=== PATIENT | male | born 1955 | race Caucasian/White ===

== ENCOUNTER 2018-02-04 12:36 | Observation (INO) | payer OTHER ==
--- NOTE | 2018-02-04 12:50 | CPEKG ---
Heart Rate: 97 RR Interval: 619 P-R Interval: 200 QRSD Interval: 102 QT Interval: 448 QTC Interval: 569 P [place]: 4 QRS [place]: -35 T Wave [place]: -34 EKG Severity - ABNORMAL ECG - EKG Impression: SINUS RHYTHM EKG Impression: VENTRICULAR TRIGEMINY EKG Impression: LEFT AXIS DEVIATION EKG Impression: LEFT VENTRICULAR HYPERTROPHY Electronically Signed By: Kodak Francis 04-Feb-2018 18:39:46
[2018-02-04 12:54] LABS: PLATELET COUNT 236 10^3/uL (150-400)
--- NOTE | 2018-02-04 13:03 | EDPHY ---
H & P Stated Complaint: Heaviness in chest this morning; recent bronchitis Time Seen by Provider: 02/04/18 13:00 HPI/ROS: CHIEF COMPLAINT: Vague chest discomfort HISTORY OF PRESENT ILLNESS: The patient presents to the ED after he woke today with some vague chest discomfort. He describes a generalized pain that is quite mild in nature. There is no radiation. He denies any history of exertional chest pain or shortness of breath. The patient does have a history of coronary artery disease with a stent placed several years ago. At that point time he had been having neck pain which the patient denies today. The patient reports he has been compliant with his regular medications for hypertension and hyperlipidemia. The patient has had months of dyspnea. The patient reportedly was started on albuterol earlier in the week for management of the symptoms. The patient denies any fever or productive cough. He denies any additional acute complaints. REVIEW OF SYSTEMS: A comprehensive 10 point review of systems is otherwise negative aside from elements mentioned in the history of present illness. Source: Patient Exam Limitations: No limitations - Personal History Current Tetanus Diphtheria and Acellular Pertussis (TDAP): Yes - Medical/Surgical History Hx Cardiac Disease: Yes Other PMH: HTN. cholesterol. card stent - Social History Smoking Status: Never smoked - Physical Exam Exam: General Appearance: Alert, no distress Eyes: Pupils equal and round no pallor or injection ENT, Mouth: Mucous membranes moist Respiratory: There are no retractions, lungs are clear to auscultation Cardiovascular: Regular rate and rhythm Gastrointestinal: Abdomen is soft and nontender, no masses, bowel sounds normal Neurological: 5/5 strength all 4 extremities, cranial nerves 2-12 intact Skin: Warm and dry, no rashes Musculoskeletal: Neck is supple nontender Extremities: symmetrical, full range of motion Constitutional: Initial Vital Signs Temperature (C) 36.5 C 02/04/18 12:37 Heart Rate 63 02/04/18 12:37 Respiratory Rate 16 02/04/18 12:37 Blood Pressure 162/96 H 02/04/18 12:37 O2 Sat (%) 93 02/04/18 12:37 O2 Delivery Mode Room Air Allergies/Adverse Reactions: No Known Allergies Allergy (Verified 02/04/18 12:37) Home Medications: Medication Instructions Recorded Albuterol Hfa Anes Only [Proair 2 puffs IH QID PRN 02/04/18 Hfa Icu (*)] Aspirin [Aspirin 325 mg (*)] 325 mg PO DAILY 02/04/18 Carvedilol [Coreg (*)] 12.5 mg PO BID 02/04/18 Enalapril Maleate [Vasotec 20 MG 20 mg PO DAILY 02/04/18 (*)] Herbals/Supplements -Info Only 1 ea PO DAILY 02/04/18 Ibuprofen [Motrin (*)] 200 - 400 mg PO Q6H PRN 02/04/18 Montelukast Sodium [Singulair 10 10 mg PO DAILY 02/04/18 mg (*)] Rosuvastatin Calcium [Crestor] 10 mg PO DAILY 02/04/18 Medical Decision Making - Diagnostics EKG Interpretation: EKG: Complete interpretation has been separately recorded in the [employer] archive. Summary impression: Sinus rhythm, rate 97, nonspecific ST T wave changes noted, multiple PVCs noted Imaging Results: Imaging Impressions Chest X-Ray 02/04/18 12:46 Impression: No active cardiopulmonary disease seen. ED Course/Re-evaluation: The patient presents to the ED with a 1 day history of atypical chest pain. The patient does have a history of known coronary artery disease. The patient' s initial troponin is normal despite 7 hr of symptoms. The patient was noted to have only mild ST segment depression in a single precordial lead. Consultation was made with Cardiology. The patient did undergo a treadmill stress test which was reported to me as being abnormal. The patient was return to the emergency department. The patient will be admitted to Cardiology for further risk stratification. Differential Diagnosis: Differential diagnosis considered includes acute myocardial infarction, acute coronary syndrome, pericarditis, esophageal spasm - Data Points Laboratory Results: Laboratory Results 02/04/18 12:47 02/04/18 12:47 02/04/18 02/04/18 12:47 12:47 WBC 5.52 10^3/uL 10^3/uL (3.80-9.50) RBC 5.62 10^6/uL 10^6/uL (4.40-6.38) Hgb 18.4 g/dL H g/dL (13.7-17.5) Hct 51.6 % H % (40.0-51.0) MCV 91.8 fL fL (81.5-99.8) MCH 32.7 pg pg (27.9-34.1) MCHC 35.7 g/dL g/dL (32.4-36.7) RDW 12.7 % % (11.5-15.2) Plt Count 236 10^3/uL 10^3/uL (150-400) MPV 9.6 fL fL (8.7-11.7) Neut % (Auto) 41.9 % % (39.3-74.2) Lymph % (Auto) 36.2 % % (15.0-45.0) [place] % (Auto) 9.8 % % (4.5-13.0) Eos % (Auto) 10.1 % H % (0.6-7.6) Baso % (Auto) 1.8 % H % (0.3-1.7) Nucleat RBC Rel Count 0.0 % % (0.0-0.2) Absolute Neuts (auto) 2.31 10^3/uL 10^3/uL (1.70-6.50) Absolute Lymphs (auto) 2.00 10^3/uL 10^3/uL (1.00-3.00) Absolute Monos (auto) 0.54 10^3/uL 10^3/uL (0.30-0.80) Absolute Eos (auto) 0.56 10^3/uL H 10^3/uL (0.03-0.40) Absolute Basos (auto) 0.10 10^3/uL 10^3/uL (0.02-0.10) Absolute Nucleated RBC 0.00 10^3/uL 10^3/uL (0-0.01) Immature Gran % 0.2 % % (0.0-1.1) Immature Gran # 0.01 10^3/uL 10^3/uL (0.00-0.10) Sodium 146 mEq/L H mEq/L (135-145) Potassium 4.9 mEq/L mEq/L (3.5-5.2) Chloride 103 mEq/L mEq/L (97-110) Carbon Dioxide 29 mEq/l mEq/l (22-31) Anion Gap 14 mEq/L mEq/L (8-16) BUN 15 mg/dL mg/dL (7-23) Creatinine 1.0 mg/dL mg/dL (0.7-1.3) Estimated GFR > 60 Glucose 72 mg/dL mg/dL (70-100) Calcium 9.7 mg/dL mg/dL (8.5-10.4) Troponin I < 0.012 ng/mL ng/mL (0.000-0.034) Departure - Departure Disposition: [facility] Inpatient Acute Clinical Impression: Chest pain Qualifiers: Chest pain type: other chest pain Qualified Code(s): R07.89 - Other chest pain ; R07.8 - Other chest pain Condition: Good
--- NOTE | 2018-02-04 15:23 | PDCARST ---
CAR Stress Test Results Type of Stress Test: TM stress test Indication: cp Description of Procedure: After informed consent was obtained, pt was exercised according to Javi Protocol. Monitoring was performed with standard stress mercury cracking tester electrode placement. Vital signs were monitored according to protocol throughout the procedure. STRESS EKG AND HEMODYNAMIC DATA. Exercise time: 6: 45 min. This is equivalent to: 7.7 METS. Resting heart rate: 63 bpm. Resting blood pressure: 121/88 mmHg. Resting O2 saturation: 98 %. Peak heart rate: 135 bpm. This is 86% of age predicted maximum heart rate response. Peak blood pressure: 140/80 mmHg. Exercise O2: 96 %. Arrhythmias: Baseline: PVC/ PVC bigeminy; Stress: PVCs/PVC triplets; Recovery: PVCs. Reason for termination : The test was stopped due to ECG changes/PVCs. Symptoms: The patient experienced no typical symptoms of angina during stress or recovery. STRESS TEST ANALYSIS. Baseline ECG: SR with mild ST abnormalities/ PVCs. Stress EC mm STD. exercise induced ischemic ECG changes: Yes. Rhythm: Frequent ventricular arrhythmias noted during exercise and recovery. Blood pressure: Normal blood pressure response to exercise. Exercise tolerance: The patient has normal exercise tolerance adjusted for age and gender. Symptoms: No exercise induced symptoms. IMPRESSIONS: Stress ECG concerning for ischemia. The [place] Treadmill Score is -4 (intermediate risk). Impression: Abnormal TM stress test. Conclusion: Admit to obs for further workup.
[2018-02-04] MEDS ORDERED: IBUPROFEN 200 MG TAB PO PRN (15:32)
[2018-02-04] MEDS ORDERED: ALBUTEROL HFA ANES ONLY 200 PUFFS/8.5 GM MDI IH PRN (15:32)
[2018-02-04] MEDS ORDERED: ACETAMINOPHEN 325 MG TAB PO PRN (16:06)
[2018-02-04] MEDS ORDERED: NITROGLYCERIN 0.4 MG BTL SL PRN (16:06)
[2018-02-04] MEDS ORDERED: TEMAZEPAM 15 MG CAP PO PRN (16:06)
--- NOTE | 2018-02-04 16:52 | GHP ---
[f rep st] HISTORY AND PHYSICAL DATE OF ADMISSION: 02/04/2018 PRIMARY DENTIST: Dr. Eric Orozco MD HISTORY OF PRESENT ILLNESS: Patient is a 62-year-old male with known coronary artery disease, status post PTCA and stenting to right coronary artery in 2014, hypertension, parathyroid tumor, status post resection approximately 1 year ago , who presented to the emergency department and is now admitted for evaluation of chest pain. He reports awakening at 7 a.m. having noted night sweats overnight. This is not unusual for him but they have decreased in frequency over the past few years. After wakening, he noted that he had a tightness in his chest. He was also noting ongoing fatigue, so he continued to lie in bed. He was able to get up later but then went back to bed noting the ongoing tightness and fatigue. As he was lying in bed, he noted left arm pain. He had 2 twinges of this that resolved spontaneously. After he got out of bed at 11 AM , he started to note tightness in his neck and jaw. It was at that point he presented to the emergency department for further evaluation. Upon arrival to the emergency department. He was noted to have some mild EKG changes. Symptoms mostly resolved on their, own and he was taken to the stress test laboratory for stress testing. With stress testing, he was noted to have frequent ventricular ectopy, PVC couplets and triplets, and at least a 1.[address] depression. With these findings, patient is now being admitted for further observation, and likely cardiac catheterization. Patient describes several months of feeling poorly. He will note dyspnea on exertion and fatigue. He was treated for sinus infection and then started to note some dyspnea for which he was prescribed an inhaler. Despite this he did not feel any significant improvement. He denies any other episodes of chest discomfort other than the above described. He denies any fever, chills, cough, or PND or orthopnea. REVIEW OF SYSTEMS: As per HPI. A complete 10-point review of systems was obtained. PAST MEDICAL HISTORY: 1. Coronary artery disease. 2. Dyslipidemia. 3. Hypertension. 4. Parathyroid tumor, status post parathyroidectomy. FAMILY HISTORY: His mother is alive and had has had CEA surgery. Father had an AR at age 53 and at age 66. SOCIAL HISTORY: Patient is retired. His is present at the time of the interview. He is a nonsmoker and alcohol is listed as only occasional. OUTPATIENT MEDICATIONS: Please see med reconciliation. It is listed that he takes carvedilol, ibuprofen, albuterol, Singulair, enalapril, aspirin and rosuvastatin. ALLERGIES: No known drug allergies. PHYSICAL EXAMINATION: VITAL SIGNS: BP of 142/103, heart rate 72, respirations 22, O2 saturation 95% on room air. GENERAL: He is a very pleasant male in no apparent distress. HEENT: Normocephalic atraumatic. Eyes are without scleral icterus. NECK: Without carotid bruit. HEART: Regular rate and rhythm with no rubs, gallops, or murmurs. LUNGS: Clear to auscultation bilaterally. ABDOMEN: Soft, nontender with normoactive bowel sounds. SKIN: Warm and dry. PSYCH: Normal mood and affect for given situation. NEURO: No focal deficits detected. His last echo was 10/02/2016, and showed EF of 60%. Mild LV impaired relaxation , and ascending aortic dilation at 3.8 cm. 11/10/2015, with PCI to RCA mid vessel with a 2.75 x 12 PROMUS stent. LABORATORY DATA: BMP with sodium 146, potassium 4.9, chloride 103, CO2 29, BUN 15, creatinine 1, glucose of 72, calcium 9.7. Troponin less than 0.012. CBC with WBC 5.52, hemoglobin 18.4, hematocrit 51.6, platelet count of 236. 12-lead ECG, personally interpreted demonstrates sinus rhythm with a first- degree AV block,diffuse ST-T wave abnormalities and frequent unifocal PVCs. Chest x-ray from 02/04/2018, shows no active cardiopulmonary disease. Patient is new to me. Chart reviewed. I spoke with Dr. Kodak Francis about patient's care. IMPRESSION AND PLAN: The patient is a 62-year-old male who is admitted with new onset chest pain. 1. Chest pain. New problem. Further workup indicated. We will plan to admit patient for serial cardiac enzymes. He will likely proceed to left heart catheterization due to abnormalities seen on stress testing. 2. Hypertension. Blood pressures are elevated currently but were appropriate during stress testing. We will continue his usual home medication regimen. 3. Dyslipidemia. Will check fasting lipids in this admission. 4. Frequent premature ventricular contractions. Echocardiogram will be ordered. His last TSH in November was within normal limits. 5. Fatigue, likely multifactorial. Will await results of his cardiac catheterization. 6. Length of stay. Patient will be admitted to obs status. If there is a need for any cardiac interventions, he may be transitioned to inpatient status. /[id number]/MODL MTDD
[2018-02-04] MEDS: CARVEDILOL 25 MG TAB PO SCH (19:59)
[2018-02-05 04:09] LABS: PLATELET COUNT 222 10^3/uL (150-400)
[2018-02-05 04:13] LABS: INR 1.06 (0.83-1.16)
[2018-02-05] MEDS ORDERED: FAMOTIDINE 20 MG TAB PO ONE (06:00)
[2018-02-05] MEDS ORDERED: DIAZEPAM 5 MG TAB PO ONE (06:00)
[2018-02-05] MEDS ORDERED: NS 1,000 ML IV ONE (06:00)
[2018-02-05] MEDS ORDERED: ASPIRIN EC 325 MG TAB PO ONE ×2 (06:00→08:53)
[2018-02-05] MEDS ORDERED: diphenhydrAMINE 25 MG CAP PO ONE ×2 (06:00→08:53)
[2018-02-05 07:19] VITALS: RESP 18
[2018-02-05] MEDS: CARVEDILOL 25 MG TAB PO SCH (07:49)
[2018-02-05] MEDS ORDERED: FAMOTIDINE 20 MG TAB ONE (08:53)
[2018-02-05] MEDS ORDERED: DIAZEPAM 5 MG TAB ONE (08:54)
[2018-02-05] MEDS ORDERED: ROSUVASTATIN CALCIUM 10 MG TAB PO SCH (09:00)
[2018-02-05] MEDS ORDERED: MONTELUKAST SODIUM 10 MG TAB PO SCH (09:00)
[2018-02-05] MEDS ORDERED: ENALAPRIL MALEATE 20 MG TAB PO SCH (09:00)
[2018-02-05] MEDS ORDERED: MIDAZOLAM 2 MG/2 ML VIAL ONE (09:00)
[2018-02-05] MEDS ORDERED: ASPIRIN 325 MG TAB PO SCH (09:00)
[2018-02-05] MEDS ORDERED: LIDOCAINE 1% 300 MG/30 ML SDV ONE (09:00)
[2018-02-05] MEDS ORDERED: IOPAMIDOL (ISOVUE-370) 150 ML BTL IV ONE (09:00)
[2018-02-05] MEDS ORDERED: fentaNYL 100 MCG/2 ML INJ ONE (09:00)
--- NOTE | 2018-02-05 09:56 | PDHPUP ---
History & Physical Update H&P update statement: This history and physical update is based on an assessment of the patient which was completed after admission or registration (within 24 hours), but prior to the surgery/procedure. H&P update: H&P reviewed & patient examined, no change in patient's condition since H&P completed
--- NOTE | 2018-02-05 09:56 | PDPROPOC ---
Sedation Plan of Care Sedation Plan of Care: vital signs stable, mental status noted, patient educated of risks, benefits, alternatives, patient can tolerate sedation ASA Classification: ASA 2 Planned drugs: fentanyl, midazolam Mallampati Score: Class 2 Mallampati Reference Image: Patient passed 3-3-2 rule?: Yes
--- NOTE | 2018-02-05 10:26 | ECHO ---
[email or web address] [address] [address] Main: [phone] Fax: Transthoracic Echocardiogram Name: JACQUIE SHAH MR#: [id number] Study Date: 02/05/2018 Study Time: 07:33 AM Date of : 1955 Age: 62 year(s) Height: 188 cm (74 in.) Weight: 95.71 kg (211 lb.) BSA: 2.22 m2 Gender: Male Examination: Echo Indication: CP/Palpitation Image Quality: Contrast: Requested by: Tsering Hyde BP: 145 mmHg/87 mmHg Heart Rate: Rhythm: Normal sinus rhythm with ectopy Indication: CP/Palpitation Procedure Staff Continuous Mining Machine Lode Miner: Edilson Rudd RDCS Reading Physician: Brent Seals MD Requesting Provider: Jere Toth MD Conclusions: Normal size left ventricle. Normal global systolic LV function. EF is 56 %. No regional wall motion abnormality. Diastolic dysfunction is present. . Mild mitral valve leaflet calcification is present. Trivial mitral valve regurgitation. Measurements: Chambers Valvular Assessment AV/MV Valvular Assessment TV/PV Normal Normal Normal Name Value Range Name Value Range Name Value Range Ao Geni (MM): 3.5 cm (2.2 cm-3.7 AV Vmax: 1.21 m/s (1 m/s-1.7 TR Vmax: 2.92 mm/s ( - ) cm) m/s) TR PGmax: 34 mmHg ( - ) IVSd (2D): 0.8 cm (0.6 cm-1.1 AV maxP mmHg ( - ) syst. PAP: 39 mmHg ( - ) cm) LVOT Vmax: 0.75 m/s (0.7 m/s-1.1 PV Vmax: 0.99 m/s (0.6 m/s-0.9 LVDd (2D): 5.7 cm (4.2 cm-5.9 m/s) m/s) cm) MV E Vmax: 0.49 m/s ( - ) PV PGmax: 4 mmHg ( - ) LVDs (2D): 3.5 cm (2.1 cm-4 MV A Vmax: 0.65 m/s ( - ) cm) MV E/A: 0.75 ( - ) LVPWd (2D): 1.2 cm (0.6 cm-1 cm) LVEF (BP): 56 % (>=55 %) Continued Measurements: Chambers Valvular Assessment AV/MV Valvular Assessment TV/PV Name Value Name Value Name Value LADs Lon.7 cm MV E' Septal: 0.04 m/s CVP (est.): 5 mmHg LA Area: 19.0 cm2 MV E/E' Septal: 12.20 Patient: JACQUIE SHAH Study Date: 02/05/2018 Page 1 of 2 07:33 AM MV E/E' Lateral: 8.70 Findings: Left Ventricle: Normal size left ventricle. No LV hypertrophy. Normal global systolic LV function. EF is 56 %. No regional wall motion abnormality. Diastolic dysfunction is present. . Right Ventricle: Normal size right ventricle. Normal RV function. Left Atrium: The left atrium is normal in size. Right Atrium: The right atrium is normal in size. Mitral Valve: Mild mitral valve leaflet calcification is present. Trivial mitral valve regurgitation. Aortic Valve: The aortic valve is tri-leaflet and functions normally. No aortic valve stenosis is present. Tricuspid Valve: The tricuspid valve is normal in appearance and function. Pulmonic Valve: The pulmonic valve is normal in appearance and function. Aorta: The aorta is normal. Pericardium: No pericardial effusion. Exam Comments: Ectopy noted during exam.. (No Signature Object) Patient: JACQUIE SHAH Study Date: 02/05/2018 Page 2 of 2 07:33 AM [id number]
[2018-02-05] MEDS ORDERED: ONDANSETRON 4 MG/2 ML VIAL IVP PRN (10:42)
[2018-02-05] MEDS ORDERED: ATROPINE SULFATE 1 MG/10 ML SYR IVP PRN (10:42)
--- NOTE | 2018-02-05 11:44 | CPIP ---
[f rep st] INVASIVE CARDIAC PROCEDURE DATE OF PROCEDURE: 02/05/2018 PROCEDURE PERFORMED: 1. Coronary angiography. 2. Left ventriculography. INDICATION: Acute coronary syndrome with negative troponin. ACCESS: Patient was prepped and draped in sterile fashion. 1% lidocaine was used to anesthetize the right inguinal region. A 6-Burmese introducer sheath was placed selectively into the right common fe moral artery via modified Seldinger technique. CORONARY ANGIOGRAPHY: A 6-Burmese JL4 catheter was advanced to the left main coronary artery and imag es obtained. The left main coronary artery bifurcated into an LAD and circumflex coronary arteries. The left main coronary artery appeared normal. The left anterior descending coronary artery gave ri se to 2 prominent diagonal branches as well as several smaller diagonal branches. The left anterior descending coronary artery had mild diffuse disease in the proximal mid segments. There was no steno sis greater than 30%. The circumflex coronary artery is a large vessel but was nondominant. Circumf dylan coronary artery gave rise to 1 prominent OM branch as well as several smaller OM branches. The c ircumflex coronary artery had mild diffuse disease in the proximal mid segment with no stenosis great er than 20%. A 6-Burmese JR4 was advanced to the right coronary artery and images obtained. The righ t coronary artery is dominant. The right coronary artery was previously stented in the mid 2 segment . The right coronary artery had mild diffuse disease throughout. In the proximal portion of the ves matthew there is a discrete 50% stenosis present. In the mid portion of the vessel there was segmental 3 0% to 40% stenosis present. In the mid 2 segment, the previously placed stent could be seen. The pr eviously placed stent is widely patent with no evidence of in-stent restenosis. The remainder of the vessel appears very similar to 2015. LEFT VENTRICULOGRAPHY: A 6-Burmese pigtail catheter was advanced in the left ventricle and images obt ained. The left ventricle is normal size, had normal systolic function. The estimated ejection frac tion was 50%. There was mild inferior hypokinesis. COMPLICATIONS: None. CONCLUSIONS: 1. Patent right coronary artery stent. 2. [id number] coronary artery disease without flow limitation. 3. Plan is for medical management. /[id number]/MODL
[2018-02-05 12:15] VITALS: TEMP 97.7
--- NOTE | 2018-02-05 12:38 | ASMTCMCOM ---
CM Note CM Note Notes: 02/05/2018 Case Management Note Pt admitted for chest pain and subsequent workup. There are no case management d/c needs identified d/t pt age, marital status and activity levels prior to admission. There are no PT or OT evals ordered at this time. Case Management d/c poc: anticipating independent with follow up as directed. Case Management available if needs change. Date Signed: 02/05/2018 12:37 PM Electronically Signed By:Lissy Le RN
[2018-02-05 13:08] VITALS: BP 150/104; PULSE 70; O2SAT 93
--- NOTE | 2018-02-05 14:34 | ASMTLACE ---
LACE Length of stay for Answers: Less than 1 day current admission Acuity / Level of Answers: No Care: Did the patient have an inpatient admission? Comorbidities - select Answers: Any tumor (including all that apply lymphoma or leukemia) Coronary Artery Disease Other Notes: HTN, untreated dyslipidemia, cardiac stent # of Emergency department Answers: 0 visits in the last 6 months Score: 5 Date Signed: 02/05/2018 02:33 PM Electronically Signed By:Lissy Le RN
--- NOTE | 2018-02-05 15:03 | ASDISCHSUM ---
Discharge Information Plan Status:Home with No Needs Medically Cleared to Leave:02/05/2018 Discharge Date:02/05/2018 CM D/C Disposition:Home, Routine, Self-Care ADT D/C Disposition:Home, Routine, Self-Care Projected Discharge Date:02/05/2018 Transportation at D/C: Discharge Delay Reason: Follow-Up Date:02/05/2018 Discharge Slot: Final Diagnosis: Placement Information Patient Contact Information Contact Name:TAVON Relationship: Address:[address] City:[place] Phone: [facility]/Zip Code:[place] [address] Email: Financial Information Financial Class:Stand Offer [facility] Primary Plan Number:[id number] Secondary Plan Desc: Secondary Plan Number: Assessment Information LACE LACE Length of stay for Answers: Less than 1 day current admission Acuity / Level of Answers: No Care: Did the patient have an inpatient admission? Comorbidities - select Answers: Any tumor (including all that apply lymphoma or leukemia) Coronary Artery Disease Other Notes: HTN, untreated dyslipidemia, cardiac stent # of Emergency department Answers: 0 visits in the last 6 months Score: 5 Date Signed: 02/05/2018 02:33 PM Electronically Signed By:Lissy Le RN [facility] CM Progress Note CM Note CM Note Notes: 02/05/2018 Case Management Note Pt admitted for chest pain and subsequent workup. There are no case management d/c needs identified d/t pt age, marital status and activity levels prior to admission. There are no PT or OT evals ordered at this time. Case Management d/c poc: anticipating independent with follow up as directed. Case Management available if needs change. Date Signed: 02/05/2018 12:37 PM Electronically Signed By:Lissy Le RN Intervention Information
--- NOTE | 2018-02-05 15:40 | GDS ---
[f rep st] DISCHARGE SUMMARY DISCHARGE DIAGNOSES: 1. Chest pain syndrome with rule out protocol. 2. Coronary artery disease with cardiac catheterization showing stable coronary artery disease and p atent stenting to right coronary artery. 3. Treated dyslipidemia. 4. Hypertension. 5. Recent history of parathyroid tumor, status post parathyroidectomy. PROCEDURES: 1. 02/04/2018, stress testing which showed EKG changes and frequent PVCs with a [place] treadmill score of -4. 2. 02/05/2018, echocardiogram which shows normal LVEF with no regional wall motion abnormality. The re is diastolic dysfunction present. Mild mitral valve calcification and trivial mitral regurgitatio n were noted. 3. 02/05/2018, left heart catheterization which shows patent RCA stent, [id number] coronary ar joby disease without flow limitation. BRIEF HISTORY: Please see dictated H and P for complete details. In brief, the patient is a 62-year -old male who has been noting several months of fatigue. [facility] day of [facility] He proceeded to stress testing which showed EKG changes and frequent PVCs. He was therefore admitted for rule-out and proceeded to left heart catheterization. He was found t o have no obstructive disease. HOSPITAL COURSE BY PROBLEM: 1. Chest pain. He has ruled out by enzymes for an acute coronary event. His cardiac catheterizatio n shows no obstructive disease at this point. He may continue medical management. 2. Hypertension. His blood pressures have been elevated at times through this admission. His home medication regimen will be continued unchanged and he is advised to monitor his blood pressure. 3. Dyslipidemia. He is on rosuvastatin. His LDL cholesterol measures at 56. Therapy may be contin ued without any changes. 4. Frequent PVCs seen on stress testing. He is advised to consider further workup of this in the fu ture. 5. Fatigue. He is advised to discuss this further with Dr. Zamora. 6. Chest tightness, likely noncardiac. He may schedule a followup with GI for further workup of thi s. RESULTS PENDING: None. DIET: Cardiac. ACTIVITY: Groin precautions reviewed. DISCHARGE MEDICATIONS: Please see med reconciliation for complete details. His home medications are being continued without any changes. These include carvedilol, ibuprofen, albuterol, enalapril, mon telukast, aspirin, Crestor. FOLLOWUP INSTRUCTIONS: 1. Outpatient GI evaluation. 2. Outpatient PCP evaluation for fatigue. 3. Follow up with Dr. Eric Orozco as scheduled in 1 month's time. /[id number]/MODL
== END 2018-02-05 15:03 | disposition home or self-care (01) ==
LOC: F2W 16:17
PROVIDERS: ADMIT Internal Medicine Cardiovascular Disease; ATTEND Internal Medicine Cardiovascular Disease
PROC: 4A023N7 Measurement of Cardiac Sampling and Pressure, Left Heart, Percutaneous Approach (ICD-10-PCS; principal; 2018-02-04)
PROC: B2111ZZ Fluoroscopy of Multiple Coronary Arteries using Low Osmolar Contrast (ICD-10-PCS; principal; 2018-02-04)
PROC: B2151ZZ Fluoroscopy of Left Heart using Low Osmolar Contrast (ICD-10-PCS; principal; 2018-02-04)
DX: R07.9 Chest pain, unspecified (principal); I25.10 Atherosclerotic heart disease of native coronary artery without angina pectoris; R94.39 Abnormal result of other cardiovascular function study; R53.83 Other fatigue; R06.09 Other forms of dyspnea; I49.3 Ventricular premature depolarization; E78.5 Hyperlipidemia, unspecified; I10 Essential (primary) hypertension; Z79.82 Long term (current) use of aspirin; Z95.5 Presence of coronary angioplasty implant and graft; Z82.49 Family history of ischemic heart disease and other diseases of the circulatory system
CPT/HCPCS: 71046; 93005; 93017; 93306; 93458; G0378; C1760; J1644; J2250; J3010; Q9967

== ENCOUNTER 2018-02-06 09:53 | Emergency (ER) | payer OTHER ==
[2018-02-06 09:58] VITALS: RESP 18; TEMP 98.1
--- NOTE | 2018-02-06 10:57 | EDPHY ---
H & P Smoking Status: Never smoked Time Seen by Provider: 02/06/18 10:10 HPI/ROS: Chief complaint: Right groin pain and swelling after catheterization yesterday History of present illness: This is a 62-year-old male who presents to the emergency department for right groin pain and swelling. Patient underwent a cardiac catheterization yesterday by Dr. Jere toscano. Today while changing the bandage he noted the swelling and discomfort. He denies other associated signs or symptoms at this time. (Marco Lyn) Physical Exam: General Appearance: Alert, nontoxic. Eyes: Pupils equal and round no injection. Respiratory: Chest is non tender, lungs are clear to auscultation. Cardiovascular: Regular rate and rhythm. DP and PT pulses 2+ bilaterally. Gastrointestinal: Abdomen is soft and non tender, no masses, bowel sounds normal. Musculoskeletal: Extremities have full range of motion and are non tender. Skin: There is a hematoma to the right inguinal region. Neurological: Alert and oriented x4. Strength and sensation intact and symmetrical. (Marco Lyn) Constitutional: Initial Vital Signs Temperature (C) 36.7 C 02/06/18 09:56 Heart Rate 62 02/06/18 09:56 Respiratory Rate 18 02/06/18 09:56 Blood Pressure 166/111 H 02/06/18 09:56 O2 Sat (%) 94 02/06/18 09:56 O2 Delivery Mode Room Air Allergies/Adverse Reactions: No Known Allergies Allergy (Verified 02/04/18 12:37) Home Medications: Medication Instructions Recorded Albuterol Hfa Anes Only [Proair 2 puffs IH QID PRN 02/04/18 Hfa Icu (*)] Aspirin [Aspirin 325 mg (*)] 325 mg PO DAILY 02/04/18 Carvedilol [Coreg (*)] 12.5 mg PO BID 02/04/18 Enalapril Maleate [Vasotec 20 MG 20 mg PO DAILY 02/04/18 (*)] Herbals/Supplements -Info Only 1 ea PO DAILY 02/04/18 Ibuprofen [Motrin (*)] 200 - 400 mg PO Q6H PRN 02/04/18 Montelukast Sodium [Singulair 10 10 mg PO DAILY 02/04/18 mg (*)] Rosuvastatin Calcium [Crestor] 10 mg PO DAILY 02/04/18 Acetaminophen [Tylenol 325mg (*)] 650 mg PO QID PRN tab 02/05/18 MDM/Departure - [facility] ED Course/Re-evaluation: Patient seen under the supervision of my secondary supervising physician Dr. Mariama Allen. Patient presents to the emergency department for some discomfort and swelling in the right inguinal region after a cardiac catheterization yesterday. His leg is neurovascularly intact. Ultrasound does not show pseudoaneurysm. I have consulted with on-call Cardiology, Dr. Brent Seals. He is comfortable with patient being discharged home to follow up in clinic. ( Marco Lyn) The patient was evaluated and managed by the Physician Restaurant Host. I discussed the patient's presentation and course with the midlevel provider with them and agree with the evaluation. My co-signature indicates that I have reviewed this chart and I agree with the findings and plan of care as documented. I am the secondary supervising physician. 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
[2018-02-06 11:26] VITALS: BP 180/100; PULSE 51; O2SAT 95
== END 2018-02-06 11:32 | disposition home or self-care (01) ==
LOC: EDUNIT#
DX: I97.630 Postprocedural hematoma of a circulatory system organ or structure following a cardiac catheterization (principal); Z79.82 Long term (current) use of aspirin